=== PATIENT | male | born 2000 | race Caucasian/White ===

== ENCOUNTER 2022-05-14 07:03 | Emergency (ER) | payer MEDICAID ==
[~2022-05-14] VITALS: Ht 172.7 cm; Wt 58.0 kg
[2022-05-14 07:39] VITALS: BP 120/80
[2022-05-14] MEDS ORDERED: cefTRIAXone SOD 1,000 MG VL IM ONE (08:00)
[2022-05-14] MEDS ORDERED: LIDOCAINE 1% HCL (LOCAL ANESTH.) INJ 20ML MDV ONE (08:04)
[2022-05-14] MEDS ORDERED: LIDO2SOL23 MT (08:15)
[2022-05-14] MEDS ORDERED: AZIT250T8 PO (08:15)
[2022-05-14] MEDS ORDERED: LIDOCAINE 1% HCL (LOCAL ANESTH.) INJ 20ML MDV IJ ONE (08:30)
== END 2022-05-14 08:20 | disposition home or self-care (01) ==
LOC: ER 07:03
DX: J03.90 Acute tonsillitis, unspecified (principal)
CPT/HCPCS: 96372; 99283; J0696; J2001